=== PATIENT | male | born 1995 | race Caucasian/White ===

== ENCOUNTER 2024-06-25 10:02 | Emergency (ER) | payer OTHER, SELFPAY ==
--- NOTE | 2024-06-25 10:41 | ED_ITS ---
HPI - Abdominal Pain General Chief Complaint: Abdominal Pain Stated Complaint: Upper ABD px Time Seen by Provider: 06/25/24 10:37 History of Present Illness HPI narrative: Patient is a 28-year-old healthy male who presents today with upper abdominal pain ongoing for the last 2 days. He reports he strained quite heavily to have bowel movement 2 days ago he thinks maybe he strained to hard. He has no rectal pain no lower abdominal pain nausea vomiting or fever. Is quite tender to touch. Denies any real chest pain. Has not really taken anything at home for his pain. Related Data Allergies Allergy/AdvReac Type Severity Reaction Status Date / Time No Known Drug Allergies Allergy Verified 06/25/24 10:55 Exam Initial Vital Signs Initial Vital Signs: Vital Signs Pulse Rate 63 06/25/24 13:02 Respiratory Rate 17 06/25/24 13:02 Blood Pressure 142/81 H 06/25/24 13:02 Pulse Oximetry 97 06/25/24 13:02 Oxygen Delivery Method Room Air 06/25/24 13:02 GENERAL: Alert well-appearing 28-year-old male and in no acute distress. HEENT: Head atraumatic,EOMI, pupils reactive, face symmetric, moist mucous membranes CARDIOVASCULAR: Regular rate and rhythm without murmurs, rubs or gallops. RESPIRATORY: Breath sounds equal bilaterally, no wheezes rales or rhonchi. ABDOMEN: Soft, positive Ruvalcaba's sign mild epigastric pain no lower abdominal pain : No CVA tenderness EXTREMITIES: Normal range of motion, no clubbing or edema. Neurovascularly intact NEUROLOGICAL: Alert and oriented x4.Normal gait and speech. Cranial nerves II through XII grossly intact. SKIN: Warm, dry, no laceration, no petechiae, no rashes or lesions. Course Orders Ordered: ED Orders 06/25/24 10:41 US abdomen limited Stat 06/25/24 11:03 Complete Blood Count AUTO DIFF Stat Comprehensive Metabolic Panel Stat Lipase Stat 06/25/24 11:50 Urine Culture Stat Urine Microscopic Stat Discontinued Medications Ketorolac Tromethamine (Ketorolac 30 Mg/Ml Vial) 15 mg IV NOW ONE Stop: 06/25/24 10:42 Last Admin: 06/25/24 11:01 Dose: 15 mg Documented By: IVETTE Vital Signs Vital signs: Vital Signs - 8 hr 06/25/24 13:02 Pulse Rate 63 Respiratory Rate 17 Blood Pressure 142/81 H Pulse Oximetry 97 Oxygen Delivery Method Room Air MDM - Abdominal Pain Lab Data 06/25/24 11:03 06/25/24 11:03 Labs: Lab Results 06/25/24 06/25/24 Range/Units 11:03 11:50 WBC 9.3 (4.5-11.0) X10^3/uL RBC 5.04 (4.5-5.9) X10^6/uL Hgb 14.4 (13.5-17.5) g/dL Hct 44.0 (41-53) % MCV 87.3 (80-100) fL MCH 28.6 (26-34) PG MCHC 32.8 (30-36) % RDW 13.9 (11.6-14.8) % Plt Count 313 (150-400) X10^3/uL Neut % (Auto) 71.1 (50-75) % Lymph % (Auto) 19.7 L (25-40) % [place] % (Auto) 7.7 (3-14) % Eos % (Auto) 1.4 L (2-4) % Baso % (Auto) 0.1 (0-2) % Neut # (Auto) 6600 (0220-7585) /uL Lymph # (Auto) 1800 (2210-2101) /uL [place] # (Auto) 700 (0-900) /uL Eos # (Auto) 100 (0-450) /uL Baso # (Auto) 0 (0-100) /uL Sodium 137 (137-145) mmol/L Potassium 5.1 (3.4-5.1) mmol/L Chloride 104 (98-107) mmol/L Carbon Dioxide 25 (22-32) mmol/L BUN 13 (9-20) mg/dL Creatinine 0.84 (0.66-1.25) mg/dL Estimated GFR > 60 (>60) mL/min BUN/Creatinine Ratio 15.5 (6-22) Glucose 96 (70-100) mg/dL Calcium 8.9 (8.4-10.2) mg/dL Total Bilirubin 1.0 (0.2-1.3) mg/dL AST 45 (17-59) IU/L ALT 40 (<50) IU/L Alkaline Phosphatase 42 (38-126) U/L Total Protein 7.8 (6.3-8.2) g/dL Albumin 4.4 (3.5-5.0) g/dL Globulin 3.4 (1.7-4.1) g/dL Albumin/Globulin Ratio 1.3 (1.0-2.8) Lipase 65 (23-300) U/L Urine RBC None seen (0-5/HPF) Urine WBC 1-5/hpf (0-5/HPF) Ur Squamous Epith Cells None seen (0-5/HPF) Urine Bacteria None seen (None) Ur Culture Indicated? Specimen cultured Vol Urine Centrifuged 10ml (spun) Point of care testing: Urine Dip Bedside Urine Glucose Negative Bedside Urine Bilirubin - Negative Bedside Urine Ketone - Negative Urine Specific Velpen 1.020 Bedside Urine Occult Blood - Negative Bedside Urine pH 6.0 Bedside Urine Protein - Negative Bedside Urine Urobilinogen - Negative Bedside Urine Nitrite - Negative Bedside Urine Leukocytes +/- 15 Esterase Imaging Data US - abdomen: Radiologist's Impression: PROCEDURE: US ABDOMEN LIMITED INDICATIONS: RUQ TECHNIQUE: Real-time scanning was performed of the abdominal and retroperitoneal organs, with image documentation. COMPARISON: None. FINDINGS: Of note, this exam was technically challenging and overall evaluation is limited. Liver: Liver is normal in size and homogeneous in echotexture. Diffusely increased hepatic echogenicity is suspected. Gallbladder: No gallstones. No wall thickening. No pericholecystic edema. Negative sonographic Ruvalcaba's sign. Biliary ducts: Intrahepatic bile ducts are non-dilated. Extrahepatic bile duct caliber measures 5 mm. Normal is 6-7 mm or less in diameter, or 10 mm or less post-cholecystectomy. Pancreas: Suboptimally evaluated. Miscellaneous: No free abdominal fluid. IMPRESSION: Hepatic steatosis without acute abnormality. Specifically, no evidence of cholecystitis. Dictated by: Lety Holly M.D. on 06/25/2024 at 11:10 MDM Narrative Medical decision making narrative: MDM CC: Abdominal pain Complicating co-morbidities: Healthy male Medical records reviewed: No priors Differential considered: Cholecystitis cholelithiasis musculoskeletal Exam documented above, pertinent findings include: Tender right upper quadrant positive Ruvalcaba's sign abdomen nonacute otherwise soft no peritoneal signs Lab Test results independently reviewed as above. Pertinent findings: Blood work overall reassuring no leukocytosis no anemia Bilirubin 1.0 AST 45 ALT 40 alk-phos 42 lipase 65 Electrolytes and kidney function within normal limits Imaging studies independently reviewed: Ultrasound shows no cholecystitis or cholelithiasis but does show hepatic steatosis Treatments: Toradol Re-evaluations: Patient has significant improvement after Toradol I am able to touch his abdomen jumping off bed overall appears well Discussion: 28-year-old male presenting today with right upper quadrant pain. Initially quite tender with positive Ruvalcaba's sign. Blood work is overall reassuring without elevation bilirubin liver enzymes or lipase. No evidence of an infection with cholecystitis. Ultrasound negative but does show hepatosteatosis which I have made patient aware of. At this time I do think patient had an abdominal strain, recommend supportive care at this time. Discharge Plan Departure Patient Disposition: Home Clinical Impression: Abdominal wall strain Instructions: DI for Abdominal Muscle Strain Activity Restrictions/Additional Instructions: *You have been diagnosed with abdominal muscle strain *What to do: At this time recommend heat or ice. Increase activity as tolerated *Continue to take medications as directed Motrin 600 mg every 6 hours for [id number] pain Tylenol 1000 mg every 6 hours if needed for [id number] pain *Follow up with your primary care provider in 2-3 days or call [phone] *Return to ER if you should have increasing pain, nausea vomiting or any new, worsening or concerning symptoms Stand Alone Forms: Patient Portal/API/Survey
[2024-06-25] MEDS: KETOROLAC 30 MG/ML VIAL 15 MG IV (11:01)
[2024-06-25 11:09] LABS: Add Manual Diff / Slide Review NO; Basophils Absolute Auto 0 /uL (0-100); Basophils Percent Auto 0.1 % (0-2); Eosinophils Absolute Auto 100 /uL (0-450); Eosinophils Percent Auto 1.4 % (2-4); Hemoglobin 14.4 g/dL (13.5-17.5); Lymphocytes Absolute Auto 1800 /uL (1100-4500); Lymphocytes Percent Auto 19.7 % (25-40); Mean Corpuscular HGB Conc 32.8 % (30-36); Mean Corpuscular Hemoglobin 28.6 PG (26-34); Mean Corpuscular Volume 87.3 fL (80-100); Monocytes Absolute Auto 700 /uL (0-900); Monocytes Percent Auto 7.7 % (3-14); Neutrophils Absolute Auto 6600 /uL (1500-7000); Neutrophils Percent Auto 71.1 % (50-75); Platelet Count 313 X10^3/uL (150-400); Red Blood Cell Count 5.04 X10^6/uL (4.5-5.9); Red Cell Distribution Width 13.9 % (11.6-14.8); White Blood Cell Count 9.3 X10^3/uL (4.5-11.0)
[2024-06-25 11:21] LABS: Alanine Aminotransferase 40 IU/L (<50); Albumin 4.4 g/dL (3.5-5.0); Albumin Globulin Ratio 1.3 (1.0-2.8); Alkaline Phosphatase 42 U/L (38-126); Aspartate Aminotransferase 45 IU/L (17-59); BUN Creatinine Ratio 15.5 (6-22); Blood Urea Nitrogen 13 mg/dL (9-20); Calcium 8.9 mg/dL (8.4-10.2); Carbon Dioxide 25 mmol/L (22-32); Chloride 104 mmol/L (98-107); Estimated Glomerular Filt Rate > 60 mL/min (>60); Globulin 3.4 g/dL (1.7-4.1); Glucose 96 mg/dL (70-100); HEMOLYSIS 131 (0-50); Lipase 65 U/L (23-300); Potassium 5.1 mmol/L (3.4-5.1); Sodium 137 mmol/L (137-145); Total Protein 7.8 g/dL (6.3-8.2)
[2024-06-25 12:15] LABS: Bacteria Urine None Seen; Culture Indicated Urine Specimen Cultured; RBC Urine None Seen (0-5/HPF); Squamous Epithelial Cell Urine None Seen (0-5/HPF); Urine Volume 10mL (spun); WBC Urine 1-5/HPF (0-5/HPF)
[2024-06-25 13:02] VITALS: BP 142/81; PULSE 63; RESP 17; O2SAT 97
== END 2024-06-25 13:02 | disposition home or self-care (01) ==
PROVIDERS: Emergency Provider Emergency Medicine
DX: S39.011A Strain of muscle, fascia and tendon of abdomen, initial encounter (principal); X50.0XXA Overexertion from strenuous movement or load, initial encounter; Y93.89 Activity, other specified
CPT/HCPCS: 36415; 76705; 80053; 81003; 81015; 83690; 85025; 87086; 96374; 99284; J1885

== ENCOUNTER → 2024-11-02 08:56 | Outpatient (CLI) | payer OTHER, SELFPAY ==
--- NOTE | 2024-11-02 08:58 | DI.MRI.S_ITS ---
PROCEDURE: MR BRAIN (IAC) WWO CON INDICATIONS: SENSORINEURAL HEARING LOSS TECHNIQUE: Noncontrast sagittal T1 spin echo, axial FLAIR, axial gradient echo, axial diffusion and ADC through the brain. Axial thin-slice 3D CISS, coronal TruFISP, axial T1 spin echo with fat saturation through the internal auditory canals. After the administration of contrast, thin slice axial and coronal T1 spin echo with fat saturation through the internal auditory canals, and axial and coronal and sagittal T1 spin echo with fat saturation through the brain. COMPARISON: None. FINDINGS: Image quality: Excellent. Cerebellopontine angles: No cerebellopontine angle masses. Inner ear structures appear normally formed. No suspicious enhancement in the internal auditory canal or along the course of the 7th cranial nerve. CSF spaces: Ventricles are normal in size and shape. No extra-axial fluid collections. Basal cisterns are patent. Brain: No intracranial bleeds or mass effects. Wilkes-white matter interface is intact. No abnormal intracranial enhancement. Diffusion weighted images demonstrate no acute ischemic insults. Brainstem appears normal. Normal intravascular flow voids are present. Skull and face: Calvarial marrow signal is normal. Orbits appear normal. Sinuses: Sinuses and mastoids are clear. IMPRESSION: No cause for patient's symptoms is identified. Normal appearance of the cerebellopontine angles and internal auditory canals. No acute intracranial abnormalities or abnormal intracranial enhancement. Dictated by: Samuel Orosco M.D. on 11/02/2024 at 16:37 Approved by: Samuel Orosco M.D. on 11/02/2024 at 16:41
== END ==
PROVIDERS: PCP Student in an Organized Health Care Education/Training Program; Referring Provider Otolaryngology; Visit Provider Otolaryngology
DX: H90.41 Sensorineural hearing loss, unilateral, right ear, with unrestricted hearing on the contralateral side (principal)
CPT/HCPCS: 70553; A9579